=== PATIENT | male | born 1930 | race Caucasian/White ===

== ENCOUNTER 2016-12-13 00:26 | Day surgery (SDC) | payer MEDICARE, OTHER ==
[2016-12-13] VITALS (13 sets, daily range): BP systolic 103–139; BP diastolic 66–77; PULSE 61–76; RESP 12–16; O2SAT 92–98
[~2016-12-13] VITALS: Ht 172.7 cm; Wt 110.0 kg
[~2016-12-13 00:26] MED LIST: CALC1CAP22 PO; COU5 PO; COZ50 PO; LEVO200T PO; OMEP20TA86 PO; PRED5TAB PO; SENNA LAXATIVE PO; SERT20OR6 PO; SIMV10TA4 PO; SPIR25TA3 PO; TAMS0.4C98 PO; TOP100 PO; VIT1TABL83 PO; mulitvitamin PO
[2016-12-13] MEDS ORDERED: predniSONE 40 MG, predniSONE 10 MG PO ONE ×2 (09:35)
[2016-12-13 10:04] LABS: BASOPHILS % (AUTO) 0 % (0-3); EOSINOPHILS % (AUTO) 0 % (0-5); MONOCYTES % (AUTO) 0.7 % (4-12); Mean Corpuscular Hemoglobin 33.2 pg (27.0-35.0); Mean Corpuscular Volume 99.7 fL (81-100); NEUTROPHILS % (AUTO) 84.8 % (40-74); Platelet Count 198 bil/L (150-400)
[2016-12-13 10:20] LABS: INR 1.06 ratio
[2016-12-13] MEDS ORDERED: Nitroglycerin 50,000 mcg/250 mL D5W Premix IV ONE (10:48)
[2016-12-13] MEDS ORDERED: Heparin 1,000 Units/500 mL NS Premix IV ONE (10:48)
[2016-12-13] MEDS ORDERED: Heparin 1,000 Unit/mL 10 mL Inj ONE (10:48)
[2016-12-13] MEDS ORDERED: Heparin 10,000 Unit/1,000 mL NS Premix IV ONE (10:48)
--- NOTE | 2016-12-13 11:03 | NUR ---
JON Patient admited to [facility] bed 3 at 0900 for heart cath. No family at bedside but will have a friend pick him up after procedure. Patient denies pain. HL X 2 placed and labs sent. ECG 12 complete. Consent confirmed. History and medications reviewed. Pre-procedure teaching done and questions answered.
[2016-12-13] MEDS ORDERED: fentaNYL-PF 50 mCg/mL 2 mL Inj ONE (11:11)
--- NOTE | 2016-12-13 12:48 | PCM.CVCATH ---
Cardiac Cath Report Date of Service Dec 13, 2016 Primary Indication Heart failure Procedure coronary angiography and right heart cath Vascular Access Right radial artery using 6 Fr sheath, closure with TR band. Right internal jugular vein using 6Fr sheath, closure with manual hold Diagnostic Catheters Left main: [place] 4.5, 6 Fr RCA: [place] 4.5, 6 Fr Procedure Details Coronary angiography details: The patient was brought to the cardiac catheterization lab in the fasting state. Patient was laid supine on the cardiac catheterization table and the right neck and the right forearm were prepped and draped in the usual sterile fashion. One percent Xylocaine was infiltrated over the internal jugular vein and vascular access was achieved under ultrasound and fluoroscopic guidance. [place] was completed. One% lidocaine was then injected over the right radial artery. Vascular access was then achieved under ultrasound guidance. Guide wire was used to advance the catheter through the sheath and up into aortic sinuses. After coronary angiography was completed, guide wire was advanced through the catheter ahead of the tip of the catheter and the guide wire along with the catheter were pulled together out of the sheath. Medications/Fluoro Time Medications administered: 1. Heparin: 5000 units IV 2. Nitroglycerin: 200 mcg IA Fluoroscopy Time: 8.9 minutes, 1016 mGy Fluids administered: 0 mls Contrast (Isovue): 50 mls Blood loss: 5 mls Findings 1) Coronary angiography: Right dominance a. Left main is angiographically normal b. LAD is normal caliber with mild luminal irregularities and no obstructive disease. c. LCx is normal caliber with mild luminal irregluarities and no obstructive disease. d. RCA is dominant vessel with no obstructive disease. 2) Right heart cath: * RA Mean Pressure 13 mmHg * RV Pressure 34/4 (RVEDP 9 mmHg) * PA Pressure 38/14 (mean 27 mmHg) * PCWP 24 mmHg * [place] Cardiac Output 7 L/min / [place] Cardiac Index 3.11 L/min/m2 Complications There were no periprocedural complications identified. Summary 1) No obstructive coronary artery disease. 2) Right heart failure consistent with diastolic heart failure with elevated right and left sided filling pressures and borderline elevated pulmonary pressure and normal cardiac output. Recommendations 1) Optimize diastolic heart failure management 2) Continue with primary prevention of coronary artery disease copies to: Destiney Hernandez MD, Bhrigu R MD Dec 13, 2016 12:48
[2016-12-13] MEDS ORDERED: CHOL200047 PO (14:35)
[2016-12-13] MEDS ORDERED: PSYL660P17 PO (14:35)
[2016-12-13] MEDS ORDERED: FURO40TA4 PO (14:35)
[2016-12-13] MEDS ORDERED: CALC-1034 PO (14:39)
[2016-12-13] MEDS ORDERED: LOSA50TA37 PO (14:39)
[2016-12-13] MEDS ORDERED: OMEP20CA11 PO (14:39)
[2016-12-13] MEDS ORDERED: LEVO200T6 PO (14:39)
[2016-12-13] MEDS ORDERED: WARF5TAB7 PO (14:39)
[2016-12-13] MEDS ORDERED: METO-274 PO (14:39)
[2016-12-13] MEDS ORDERED: MULT-666 PO (14:40)
--- NOTE | 2016-12-13 16:30 | NUR ---
JON DISCHARGE PT WAS RECEIVED FROM [facility] AT 1245 WITH TR BAND TO RIGHT WRIST. BEDREST WAS COMPLETED AND TR BAND SUCCESSFULLY REMOVED AFTER SPECIFIED TIME. DISCHARGE INSTRUCTIONS INCLUDING MEDICATIONS, F/U, AND POST SEDATION AND HEART CATH /TR BAND INSTRUCTIONS WERE REVIEWED AND PT VERBALIZED UNDERSTANDING. HE WAS DISCHARGED IN STABLE CONDITION WITH FAMILY AT 1620. TELEPHONE MESSAGE LEFT FOR PT REGARDING F/U LAB WORK (BMP) TO BE DONE PRIOR TO SEEING DR VO NEXT WEEK.
== END 2016-12-13 23:59 | disposition home or self-care (01) ==
LOC: SOUO 00:26
PROVIDERS: ATTEND Internal Medicine Cardiovascular Disease
DX: I50.30 Unspecified diastolic (congestive) heart failure (principal); I48.1 Persistent atrial fibrillation; N40.0 Benign prostatic hyperplasia without lower urinary tract symptoms; I10 Essential (primary) hypertension; E78.5 Hyperlipidemia, unspecified; I07.1 Rheumatic tricuspid insufficiency; I27.2 Other secondary pulmonary hypertension; Z79.01 Long term (current) use of anticoagulants; Z87.891 Personal history of nicotine dependence
CPT/HCPCS: 36415; 80048; 85025; 85610; 93005; 93456; 99152; 99153; C1729; C1769; C1887; C1894; J1200; J1644; J2250; J3010; Q9967